=== PATIENT | male | born 1990 | race Caucasian/White ===

== ENCOUNTER 2018-01-25 22:13 | Emergency (ER) | payer BC ==
--- OUTSIDE RECORDS SUMMARY | 2018-01-25 22:17 | XMS REPORT | Continuity of Care Document ---
:1990 Author Organization Interface Problems Problem Status Onset Classification Date Comments Source Date Reported Acute headache 10/26/19 10/28/2017 [facility] 18 Nausea and 10/26/19 10/28/2017 [facility] vomiting 18 POSTOPERATIVE Active 10/19/19 [facility] SPINAL HEADACHE 18 [place] BACK PAIN, Active 10/19/19 [facility] NAUSEA 18 [place] BACK PAIN AND Active 08/26/19 [facility] LEG PAIN 18 [place] Discharge 04/05/20 04/08/2016 [place] Scrotal pain Discharge 04/05/20 04/08/2016 [place] Diagnosis: [place] Abdominal pain RIGHT LOWER Active 04/05/20 [place] QUADRANT PAIN [place] Generalized Resolved Problem 10/28/2017 anxiety disorder [facility] [place] Major depressive Resolved Problem 10/28/2017 disorder [facility] [place] Obesity Active Problem 10/28/2017 [facility] PTSD (<span Resolved Problem 10/28/2017 ID="[id number] [facility] ">Confirmed</spa [place] n>) OTHER REACTION [facility] [place] LUMBAR PUNC Medications Medication Details Route Status Patient Ordering Order Source Instructions Provider Date Acetaminophen 300 1 cap, PO, Q4H, Active MG / butalbital 50 PRN PRN 2018 [place] MG / Caffeine 40 Headache, Do MG Oral Capsule not exceed 6 [Fioricet] capsules in 24 hours, X 10 day, # 24 cap, 0 Refill(s) Promethazine 25 mg=1 supp, Active Hydrochloride 25 VA, Q6H, PRN 2018 [place] MG Rectal Nausea & Suppository Vomiting, # 12 [Phenergan] supp, 0 Refill(s) Ondansetron 4 MG 4 mg=1 tab, PO, Active Disintegrating BID, PRN Nausea 2018 [place] Tablet [Zofran] and Vomiting, Dissolve tab under tongue, # 10 tab, 0 Refill(s) Ketorolac 30 mg, 1 mL, Inactive Route: IVP, 2017 [place] Drug form: INJ, ONCE, Dosing Weight 102.273, kg, Priority: STAT, Start date: 10/25/17 18:51:00 CDT, Stop date: 10/25/17 18:51:00 CDTNotes: (Same as:Toradol) IV bolus must be given >15 seconds. Give IM administration slowly and deeply into the muscle. Not for use > 4 days MEDICATION WASTE Product Size: 30 mg Product Wasted: ___ mg Valproic Acid 100 1,000 mg, 10 Inactive MG/ML Injectable mL, Route: 2018 [place] Solution IVPB, ONCE, Dosing Weight 102.273, kg, Start date: 10/25/17 18:10:00 CDT, Stop date: 10/25/17 18:10:00 CDTNotes: Dilute in at least 50ml D5W or NS. Infusion rate=20 mg/min (Same As: Depacon) Benadryl 25 mg, 0.5 mL, Inactive Route: IVP, 2017 [place] Drug form: INJ, ONCE, Dosing Weight 102.273, kg, Priority: STAT, Start date: 10/25/17 18:02:00 CDT, Stop date: 10/25/17 18:02:00 CDTNotes: (Same as: Benadryl) Reglan 10 mg, 2 mL, Inactive Route: IVP, 2017 [place] Drug form: SOLN, ONCE, Dosing Weight 102.273, kg, Priority: STAT, Start date: 10/25/17 18:01:00 CDT, Stop date: 10/25/17 18:01:00 CDTNotes: (Same as: Reglan) Fentanyl 50 microgram, 1 Inactive mL, Route: IVP, 2017 [place] Drug form: INJ, ONCE, Dosing Weight 102.273, kg, Priority: STAT, Start date: 10/25/17 18:01:00 CDT, Stop date: 10/25/17 18:01:00 CDTNotes: (Same as: Sublimaze) Preservative free. Compazine 10 mg, 2 mL, Inactive Route: IV, Drug 2017 [place] form: INJ, ONCE, Dosing Weight 102.273, kg, Start date: 10/25/17 18:01:00 CDT, Stop date: 10/25/17 18:01:00 CDTNotes: (Same as: Compazine) Acetaminophen 325 1 tab, PO, Q6H, Active MH MG / Hydrocodone PRN Pain Score 2018 [place] Bitartrate 5 MG 6-10, 0 Oral Tablet [[place] Refill(s) 5/325] Acetaminophen 325 1 tab, PO, Q6H, Active MH MG / butalbital 50 PRN Headache 2018 [place] MG / Caffeine 40 1-5, X 7 day, # MG Oral Tablet 28 tab, 0 [Esgic] Refill(s), Pharmacy: [facility]/pharmacy #[id number] {21 See Active (Methylprednisolon Instructions, 2018 [place] e 4 MG Oral Tablet PO, Take by [Medrol]) } Pack mouth as [Medrol Dosepak] directed on label., # 1 Pack, 0 Refill(s), Pharmacy: [facility]/pharmacy #[id number] HYDROcodone 10 mg 10 mg=1 cap, Inactive MH oral capsule, PO, Q12H, 0 2018 [place] extended release Refill(s) methocarbamol 500 1,000 mg=2 tab, Inactive MH mg oral tablet PO, QID, # 56 2018 [place] tab, 0 Refill(s) Acetaminophen 300 1 - 2 tab, PO, Inactive MH MG / Codeine Q4H, PRN Pain, 2018 [place] Phosphate 30 MG # 20 tab, 0 Oral Tablet Refill(s) [Tylenol with Codeine #3] MethylPREDNISolone See Inactive MH Dose Pack 4 mg Instructions, 2018 [place] oral tablet PO, Daily, Use as directed on label., # 1 Pack, 0 Refill(s) Caffeine 200 MG 200 mg, Route: Inactive MH Oral Tablet PO, Drug form: 2018 [place] TAB, Daily, Dosing Weight 104.545, kg, Start date: 10/21/17 9:00:00 CDT, Duration: 30 day, Stop date: 11/19/17 9:00:00 CDT Valproic Acid 100 250 mg, 2.5 mL, Inactive MH MG/ML Injectable Route: IV, Q8H, 2018 [place] Solution Dosing Weight 104.545, kg, Start date: 10/21/17 0:00:00 CDT, Stop date: 10/22/17 16:00:00 CDTNotes: Dilute in at least 50ml D5W or NS. Infusion rate=20 mg/min (Same As: Depacon) Magnesium Sulfate 2 gm, 50 mL, Inactive Route: IV, Drug 2018 [place] form: INJ, ONCE, Dosing Weight 104.545, kg, Start date: 10/20/17 17:00:00 CDT, Stop date: 10/20/17 17:00:00 CDTNotes: WASTE: F/P - Sink; E - Municipal Trash Bin naproxen sodium 500 mg, 1 tab, Inactive Route: PO, Drug 2018 [place] form: TAB, ONCE, Dosing Weight 104.545, kg, Start date: 10/20/17 16:56:00 CDT, Stop date: 10/20/17 16:56:00 CDTNotes: (Same as: Naprosyn) Take with food. Dilaudid 0.5 mg, 0.5 mL, No Longer Route: IV, Drug Active 2018 [place] form: INJ, Q6H, Dosing Weight 104.545, kg, PRN Pain Score 6-10, Start date: 10/20/17 15:46:00 CDT, Duration: 30 day, Stop date: 11/19/17 15:45:00 CDT, Pain Score 9-10Notes: Same as: Dilaudid Acetaminophen 325 1 tab, Route: No Longer MG / Hydrocodone PO, Drug Form: Active 2018 [place] Bitartrate 5 MG TAB, Dosing Oral Tablet [[place] Weight 104.545, 5/325] kg, Q6H, PRN Pain Score 6-10, Start date: 10/20/17 15:34:00 CDT, Duration: 30 day, Stop date: 11/19/17 15:33:00 CDTNotes: (Same as: [place] 325/5) Do not exceed 4gm/day of acetaminophen. methylPREDNISolone 250 mg, 4 mL, Inactive SODium SUCCinate + Route: IV, Drug 2018 [place] Sodium Chloride form: INJ, Q8H, 0.9% IV 96 mL Dosing Weight 104.545, kg, Start date: 10/19/17 21:00:00 CDT, Stop date: 11/18/17 16:00:00 CDTNotes: (Same as:Solu-MEDROL, A-Methapred) methylPREDNISolone 250 mg, 4 mL, No Longer MH + Sodium Chloride Route: IV, Drug Active 2018 [place] 0.9% IV 100 mL form: INJ, Q8H, Start date: 10/19/17 21:00:00 CDT, Duration: 30 day, Stop date: 11/18/17 16:00:00 CDTNotes: (Same as:Solu-MEDROL, A-Methapred) methylPREDNISolone 250 mg, 4 mL, Inactive SODium SUCCinate + Route: IV, Drug 2018 [place] Sodium Chloride form: INJ, Q8H, 0.9% IV 96 mL Dosing Weight 104.545, kg, Start date: 10/19/17 19:00:00 CDT, Stop date: 11/18/17 16:00:00 CDTNotes: (Same as:Solu-MEDROL, A-Methapred) methylPREDNISolone 250 mg, 4 mL, Inactive SODium SUCCinate + Route: IV, Drug 2018 [place] Sodium Chloride form: INJ, Q8H, 0.9% IV 100 mL Dosing Weight 104.545, kg, Start date: 10/19/17 16:00:00 CDT, Stop date: 10/20/17 10:00:00 CDTNotes: (Same as:Solu-MEDROL, A-Methapred) Valproic Acid 100 250 mg, 2.5 mL, Active MG/ML Injectable Route: IVPB, 2018 [place] Solution Q8H, Dosing Weight 104.545, kg, Start date: 10/19/17 16:00:00 CDT, Stop date: 10/20/17 10:00:00 CDTNotes: Dilute in at least 50ml D5W or NS. Infusion rate=20 mg/min (Same As: Depacon) Phenergan + Sodium 25 mg, 1 mL, No Longer 05/17/ MH Chloride 0.9% IV Route: IVPB, Active 2018 [place] 50 mL Q4H, PRN Nausea & Vomiting, Start date: 10/19/17 15:06:00 CDT, Duration: 30 day, Stop date: 11/18/17 15:05:00 CDTNotes: Do not give IV push. (Same as: Phenergan) Zofran 4 mg, 2 mL, No Longer Route: IVP, Active 2018 [place] Drug form: INJ, Q8H, Dosing Weight 104.545, kg, PRN Nausea, Start date: 10/19/17 14:59:00 CDT, Duration: 30 day, Stop date: 11/18/17 14:58:00 CDTNotes: (Same as: Zofran) MEDICATION WASTE Product Size: 4 mg Product Wasted: ___ mg Zofran 4 mg, 2 mL, Inactive Route: IV, Drug 2017 [place] form: INJ, ONCE, Dosing Weight 104.545, kg, Priority: STAT, Start date: 10/19/17 14:50:00 CDT, Stop date: 10/19/17 14:50:00 CDTNotes: (Same as: Zofran) MEDICATION WASTE Product Size: 4 mg Product Wasted: ___ mg Magnesium Sulfate 2 gm, 50 mL, Inactive Route: IV, Drug 2017 [place] form: INJ, ONCE, Dosing Weight 104.545, kg, Start date: 10/19/17 14:49:00 CDT, Stop date: 10/19/17 14:49:00 CDTNotes: WASTE: F/P - Sink; E - [employer] Trash Bin Acetaminophen 325 1 tab, Route: No Longer MG / butalbital 50 PO, Drug Form: Active 2018 [place] MG / Caffeine 40 TAB, Dosing MG Oral Tablet Weight 104.545, [Esgic] kg, Q4H, PRN Headache 1-5, Start date: 10/18/17 23:57:00 CDT, Duration: 30 day, Stop date: 11/17/17 23:56:00 CDTNotes: (acetaminophen- butalbital-caff eine 325-50-40mg) Do not exceed 4 gm/day of acetaminophen. (Same as: Esgic, Fioricet) Morphine 4 mg, 1 mL, No Longer Route: IV, Drug Active 2017 [place] form: SOLN, Q4H, Dosing Weight 104.545, kg, PRN Pain Score 4-6, Start date: 10/18/17 22:54:00 CDT, Stop date: 11/17/17 22:53:00 CDTNotes: (Same as:MORPhine Sulfate) Dilaudid 1 mg, 1 mL, No Longer Route: IV, Drug Active 2017 [place] form: INJ, Q4H, Dosing Weight 104.545, kg, PRN Pain Score 7-10, Start date: 10/18/17 21:17:00 CDT, Stop date: 11/17/17 21:16:00 CDTNotes: Same as: Dilaudid Phenergan 12.5 mg, 0.5 No Longer mL, Route: Active 2018 [place] IVPB, Q4H, Dosing Weight 104.545, kg, PRN Nausea & Vomiting, Start date: 10/18/17 21:17:00 CDT, Duration: 30 day, Stop date: 11/17/17 21:16:00 CDTNotes: Do not give IV push. (Same as: Phenergan) Saline Flush 0.9% 10 ml, Route: No Longer IVP, Drug Form: Active 2017 [place] INJ, Dosing Weight 104.545, kg, PRN, PRN Line Flush, Start date: 10/18/17 21:15:00 CDT, Duration: 30 day, Stop date: 11/17/17 21:14:00 CDTNotes: (Same as: BD Posiflush) Sodium Chloride 1,000 mL, Rate: No Longer 0.9% IV 1,000 mL 125 ml/hr, Active 2018 [place] Infuse over: 8 hr, Route: IV, Dosing Weight 104.545 kg, Total Volume: 1,000, Start date: 10/18/17 21:15:00 CDT, Duration: 30 day, Stop date: 11/17/17 21:14:00 CDT, 2.31, m2 Acetaminophen 650 mg, 2 tab, No Longer Route: PO, Drug Active 2017 [place] form: TAB, Q4H, Dosing Weight 104.545, kg, PRN Pain 1-3/Temp > 100.4 F, Start date: 10/18/17 21:15:00 CDT, Duration: 30 day, Stop date: 11/17/17 21:14:00 CDTNotes: Do not exceed 4 gm/day. (Same as: Tylenol) Phenergan 12.5 mg, 0.5 Inactive mL, Route: 2018 [place] IVPB, ONCE, Dosing Weight 104.545, kg, Priority: STAT, Start date: 10/18/17 16:36:00 CDT, Stop date: 10/18/17 16:36:00 CDTNotes: Do not give IV push. (Same as: Phenergan) Dilaudid 0.5 mg, 0.5 mL, Inactive Route: IVP, 2017 [place] Drug form: INJ, ONCE, Dosing Weight 104.545, kg, Priority: STAT, Start date: 10/18/17 16:36:00 CDT, Stop date: 10/18/17 16:36:00 CDTNotes: Same as: Dilaudid normal saline 0.9% 1,000 mL, Rate: Inactive IV 1000 mL 1,000 ml/hr, 2017 [place] Infuse over: 1 hr, Route: IV, Dosing Weight 104.545 kg, Total Volume: 1,000, Priority: STAT, Start date: 10/18/17 15:16:00 CDT, Duration: 1 doses or times, Stop date: 10/18/17 16:15:00 CDT, 2.31, m2 Zofran ODT 4 mg, 1 tab, Inactive Route: PO, Drug 2017 [place] form: TABDIS, ONCE, Dosing Weight 104.545, kg, Priority: STAT, Start date: 10/18/17 14:09:00 CDT, Stop date: 10/18/17 14:09:00 CDTNotes: (Same as: Zofran ODT) Phenergan 12.5 mg, Route: Inactive IVPB, ONCE, 2017 [place] Dosing Weight 104.545, kg, Priority: STAT, Start date: 10/18/17 14:09:00 CDT, Stop date: 10/18/17 14:09:00 CDT Dilaudid 0.5 mg, 0.5 mL, Inactive Route: IVP, 2017 [place] Drug form: INJ, ONCE, Dosing Weight 104.545, kg, Priority: STAT, Start date: 10/18/17 12:02:00 CDT, Stop date: 10/18/17 12:02:00 CDTNotes: Same as: Dilaudid Morphine 4 mg, 1 mL, Inactive Route: IVP, 2017 [place] Drug form: SOLN, ONCE, Dosing Weight 104.545, kg, Priority: STAT, Start date: 10/18/17 11:59:00 CDT, Stop date: 10/18/17 11:59:00 CDTNotes: (Same as:MORPhine Sulfate) Morphine 4 mg, 1 mL, Inactive Route: IVP, 2017 [place] Drug form: SOLN, ONCE, Dosing Weight 104.545, kg, Priority: STAT, Start date: 10/18/17 10:12:00 CDT, Stop date: 10/18/17 10:12:00 CDTNotes: (Same as:MORPhine Sulfate) Robaxin 1,000 mg, 10 Inactive mL, Route: IV, 2017 [place] Drug form: INJ, ONCE, Dosing Weight 104.545, kg, Start date: 10/18/17 10:12:00 CDT, Stop date: 10/18/17 10:12:00 CDTNotes: (Same as:Robaxin) normal saline 0.9% 1,000 mL, Rate: Inactive IV 1,000 mL 1,000 ml/hr, 2017 [place] Infuse over: 1 hr, Route: IV, Dosing Weight 104.545 kg, Total Volume: 1,000, Priority: STAT, Start date: 10/18/17 8:54:00 CDT, Duration: 1 doses or times, Stop date: 10/18/17 9:53:00 CDT, 2.31, m2 Morphine 6 mg, 1.5 mL, Inactive Route: IVP, 2017 [place] Drug form: SOLN, ONCE, Dosing Weight 104.545, kg, Priority: STAT, Start date: 10/18/17 8:54:00 CDT, Stop date: 10/18/17 8:54:00 CDTNotes: (Same as:MORPhine Sulfate) Reglan 10 mg, 2 mL, Inactive Route: IVP, 2017 [place] Drug form: SOLN, ONCE, Dosing Weight 104.545, kg, Priority: STAT, Start date: 10/18/17 8:54:00 CDT, Stop date: 10/18/17 8:54:00 CDTNotes: (Same as: Reglan) tramadol 50 mg=1 tab, Active [place] hydrochloride 50 PO, Q4H, PRN [place] MG Oral Tablet Pain, X 5 day, # 30 tab, 0 Refill(s) Morphine 4 mg, Route: Inactive [place] IVP, ONCE, 2015 [facility] Dosing Weight 115.007, kg, Priority: STAT, Start date: 04/05/16 14:57:00 CDT, Stop date: 04/05/16 14:57:00 CDT Tramadol PO, 0 Refill(s) Active [place] Klonopin PO, TID, 0 Active [place] Refill(s) [place] Trazodone PO, 0 Refill(s) Active [place] Paxil PO, Daily, 0 Active [place] Refill(s) [place] Zofran 4 mg, Route: Inactive [place] IVP, Drug form: [place] INJ, ONCE, Dosing Weight 115.007, kg, Priority: STAT, Start date: 04/05/16 12:34:00 CDT, Stop date: 04/05/16 12:34:00 CDT Dilaudid 1 mg, Route: Inactive [place] IVP, ONCE, 2015 [facility] Dosing Weight 115.007, kg, Priority: STAT, Start date: 04/05/16 12:34:00 CDT, Stop date: 04/05/16 12:34:00 CDT Ondansetron 4 mg, Route: Inactive [place] IVP, ONCE, 2015 [facility] Dosing Weight 115.007, kg, Priority: STAT, Start date: 04/05/16 11:16:00 CDT, Stop date: 04/05/16 11:16:00 CDT Morphine 4 mg, Route: Inactive [place] IVP, ONCE, 2015 [facility] Dosing Weight 115.007, kg, Priority: STAT, Start date: 04/05/16 11:16:00 CDT, Stop date: 04/05/16 11:16:00 CDT Sodium Chloride 1,000 mL, 2,000 Inactive [place] 0.154 MEQ/ML ml/hr, Infuse 2015 [facility] Injectable Over: 30 Solution minutes, Route: IV, ONCE, Priority: STAT, Dosing Weight 115.007 kg, Start date: 04/05/16 11:16:00 CDT, Duration: 1 doses or times, Stop date: 04/05/16 11:16:00 CDT Saline Flush 0.9% 10 mL, Route: Inactive [place] IVP, Drug Form: [place] INJ, Dosing Weight 115.007, kg, PRN, PRN Line Flush, Start date: 04/05/16 11:16:00 CDT, Duration: 30 day, Stop date: 05/05/16 10:15:00 CSTNotes: (Same as: BD Posiflush) Allergies, Adverse Reactions, Alerts Substance Category Reaction Severity Reaction Status Date Comments Source type Reported NKDA Assertion Drug Active allergy [place] Immunizations Immunization Date Given Site Status Last Updated Comments Source Results Order Name Results Value Reference Date Interpretation Comments Source Range URINE AND UA Color STRAW 10/25 STOOL [place] URINE AND UA <=1.0 0.1 - 1.0 10/25 STOOL Urobilinogen mg/dL /2017 [place] URINE AND UA Sq Epi None Seen 10/25 STOOL [place] URINE AND UA Turbidity Clear Clear 10/25 STOOL /2017 [place] (10/25/17 5:10 PM) URINE AND UA WBC null 0 - 5 10/25 [place] URINE AND UA Mucus Few /LPF None Seen 10/25 [place] /LPF /2017 [place] URINE AND UA Glucose Negative Negative 10/25 [place] mg/dL mg/dL [place] URINE AND UA Spec Grav 1.008 <=1.030 10/25 [place] URINE AND UA pH 7.0 5.0 - 8.0 10/25 [place] URINE AND UA Protein Negative Negative 10/25 [place] mg/dL mg/dL [place] URINE AND UA Ketones Negative Negative 10/25 [place] mg/dL mg/dL [place] URINE AND UA Blood Negative Negative 10/25 [place] (10/25/17 5:10 PM) URINE AND UA Bili Negative Negative 10/25 [place] *NA* (10/25/17 5:10 PM) URINE AND UA Nitrite Negative Negative 10/25 [place] (10/25/17 5:10 PM) URINE AND UA Leuk Est Negative Negative 10/25 [place] (10/25/17 5:10 PM) CHEM PANEL A/G Ratio 1.2 0.7 - 1.6 10/25 [place] CHEM PANEL Globulin 3.4 g/dL 2.7 - 4.2 10/25 [place] CHEM PANEL B/C Ratio 14 6 - 25 10/25 [place] CHEM PANEL AGAP 10.7 meq/L 10.0 - 10/25 20.0 [place] CHEM PANEL eGFR 127 10/25 Result Comment: The eGFR is calculated using the CKD-EPI formula. In most young, healthy individuals the eGFR will be >90 mL/ min/1.73m2. The eGFR declines with age. An eGFR of 60-89 may be normal in mL/min/1.7 /2017 some populations, particularly the elderly, for whom the CKD-EPI formula has not been extensively validated. Use of the eGFR is not recommended in the following populations: [place] 3m2 Individuals with unstable creatinine concentrations, including patients and those with serious co-morbid conditions. Patients with extremes in muscle mass or diet. The data above are obtained from the National Kidney Disease Education Program (NKDEP) which additionally recommends that when the eGFR is used in patients with extremes of body mass index for purposes of drug dosing, the eGFR should be multiplied by the estimated BMI. CHEM PANEL Albumin Lvl 4.0 g/dL 3.5 - 5.0 10/25 [place] CHEM PANEL Total 7.4 g/dL 6.4 - 8.4 10/25 MH [place] CHEM PANEL Bili Total 0.3 mg/dL 0.2 - 1.3 10/25 [place] CHEM PANEL Alk Phos 56 unit/L 39 - 136 10/25 [place] CHEM PANEL AST 22 unit/L 0 - 37 10/25 [place] CHEM PANEL ALT 95 unit/L 0 - 65 10/25 [place] CHEM PANEL Glucose Lvl 81 mg/dL 70 - 99 10/25 [place] CHEM PANEL Potassium 4.7 meq/L 3.5 - 5.1 10/25 MH Lvl /2017 [place] CHEM PANEL Sodium Lvl 140 meq/L 135 - 145 10/25 [place] CHEM PANEL Creatinine 0.71 mg/dL 0.50 - 10/25 MH Lvl 1.40 [place] CHEM PANEL BUN 10 mg/dL 7 - 22 10/25 [place] CHEM PANEL Calcium Lvl 8.9 mg/dL 8.5 - 10.5 10/25 [place] CHEM PANEL CO2 29 meq/L 24 - 32 10/25 [place] CHEM PANEL Chloride Lvl 105 meq/L 95 - 109 10/25 [place] HEMATOLOGY PTT 21.9 s 22.9 - 10/25 MH 35.8 [place] HEMATOLOGY INR 0.94 0.85 - 10/25 MH 1.17 [place] HEMATOLOGY PT 12.6 s 12.0 - 10/25 MH 14.7 [place] HEMATOLOGY MPV 7.3 fL 7.4 - 10.4 10/25 [place] HEMATOLOGY RBC 5.03 M/CMM 4.70 - 10/25 MH 6.10 [place] HEMATOLOGY WBC 12.8 K/CMM 3.7 - 10.4 10/25 [place] HEMATOLOGY MCV 91.6 fL 80.0 - 10/25 MH 94.0 [place] HEMATOLOGY Hct 46.1 % 42.0 - 10/25 MH 54.0 [place] HEMATOLOGY Hgb 15.9 g/dL 14.0 - 10/25 MH 18.0 [place] HEMATOLOGY MCH 31.5 pg 27.0 - 10/25 MH 31.0 [place] HEMATOLOGY Platelet 258 K/CMM 133 - 450 10/25 [place] HEMATOLOGY MCHC 34.4 g/dL 32.0 - 10/25 MH 36.0 [place] HEMATOLOGY RDW 12.5 % 11.5 - 10/25 MH 14.5 [place] HEMATOLOGY Lymphocytes 4.3 K/CMM 1.0 - 5.5 10/25 MH # [place] HEMATOLOGY Monocytes # 1.0 K/CMM 0.0 - 0.8 10/25 [place] HEMATOLOGY Eosinophils 0.1 K/CMM 0.0 - 0.5 10/25 MH # [place] HEMATOLOGY Basophils # 0.1 K/CMM 0.0 - 0.2 10/25 [place] HEMATOLOGY Segs 56.7 % 45.0 - 10/25 MH 75.0 [facility] Monocytes 8.1 % 2.0 - 12.0 10/25 [facility] Lymphocytes 33.8 % 20.0 - 10/25 MH 40.0 [place] HEMATOLOGY Eosinophils 0.9 % 0.0 - 4.0 10/25 [facility] Segs-Bands # 7.3 K/CMM 1.5 - 8.1 10/25 [facility] Basophils 0.5 % 0.0 - 1.0 10/25 [place] Brain wo Brain wo Clinical Indication: - EM. 10/25 - [facility] contrast CT contrast CT - [place] Comparison: None. Read by: Annie Robert MD Dictated Date/time: 10/25/17 18:25 Electronically Signed by: Annie Robert MD 10/25/17 18:34 FINAL REPORT TECHNIQUE: CT images were obtained from the foramen magnum to the vertex without the use of intravenous contrast on a multidetector CT. CT imaging was performed with exposure control parameters to reduc e radiation dose. Coronal and sagittal reconstructions were obtained. CT radiation dose DLP: 1010.31 mGy-cm FINDINGS: BRAIN PARENCHYMA: The brain parenchyma is normal with normal bustamante and white interfaces. The periventricular white matter appears unremarkable. No focal mass lesions on this noncontrast head CT. No mass effect, midline shift or edema. There are no intra-axial or extra-axial fluid collections, intraventricular or intraparenchymal hemorrhage. No low attenuation demarcating areas on this non-contrast CT to suggest subacute stroke. VENTRICLES: The lateral ventricles, third and fourth ventricles appear unremarkable. The basilar cisterns are normal. ORBITS, MASTOIDS AND PARANASAL SINUSES: The visualized orbits are unremarkable. The visualized paranasal sinuses are unremarkable. The mastoid air cells are clear. SKULL: There are no osseous abnormalities. If there is further concern for intracranial pathology or acute stroke, MRI of the brain may be performed for complete assessment. IMPRESSION: No acute abnormality in the brain. SL: [facility] CHEM PANEL eGFR 129 10/20 Result Comment: The eGFR is calculated using the CKD-EPI formula. In most young, healthy individuals the eGFR will be >90 mL/ min/1.73m2. The eGFR declines with age. An eGFR of 60-89 may be normal in MH mL/min/1. some populations, particularly the elderly, for whom the CKD-EPI formula has not been extensively validated. Use of the eGFR is not recommended in the following populations: [place] [address] Individuals with unstable creatinine concentrations, including patients and those with serious co-morbid conditions. Patients with extremes in muscle mass or diet. The data above are obtained from the National Kidney Disease Education Program (NKDEP) which additionally recommends that when the eGFR is used in patients with extremes of body mass index for purposes of drug dosing, the eGFR should be multiplied by the estimated BMI. CHEM PANEL Calcium Lvl 9.1 mg/dL 8.5 - 10.5 10/20 [place] CHEM PANEL Creatinine 0.68 mg/dL 0.50 - 10/20 MH Lvl 1.40 [place] CHEM PANEL Sodium Lvl 139 meq/L 135 - 145 10/20 [place] CHEM PANEL Glucose Lvl 131 mg/dL 70 - 99 10/20 [place] CHEM PANEL BUN 12 mg/dL 7 - 22 10/20 [place] CHEM PANEL CO2 25 meq/L 24 - 32 10/20 [place] CHEM PANEL Chloride Lvl 103 meq/L 95 - 109 10/20 [place] CHEM PANEL Potassium 4.0 meq/L 3.5 - 5.1 10/20 [facility] Lvl /2017 [place] CHEM PANEL AGAP 15.0 meq/L 10.0 - 10/20 MH 20.0 [place] HEMATOLOGY MCV 89.9 fL 80.0 - 10/20 MH 94.0 /2017 [place] HEMATOLOGY RDW 12.6 % 11.5 - 10/20 MH 14.5 [place] HEMATOLOGY WBC 10.6 K/CMM 3.7 - 10.4 10/20 /2017 [place] HEMATOLOGY MPV 7.0 fL 7.4 - 10.4 10/20 /2017 [facility] MCH 31.6 pg 27.0 - 10/20 MH 31.0 [place] HEMATOLOGY MCHC 35.2 g/dL 32.0 - 10/20 MH 36.0 [place] HEMATOLOGY Platelet 256 K/CMM 133 - 450 10/20 [place] HEMATOLOGY Hgb 15.6 g/dL 14.0 - 10/20 MH 18.0 [place] HEMATOLOGY Hct 44.5 % 42.0 - 10/20 MH 54.0 [place] HEMATOLOGY RBC 4.95 M/CMM 4.70 - 10/20 MH 6.10 [place] HEMATOLOGY Monocytes 0.8 % 2.0 - 12.0 10/20 MH /2017 [place] HEMATOLOGY Basophils 0.1 % 0.0 - 1.0 10/20 /2017 [place] HEMATOLOGY Monocytes # 0.1 K/CMM 0.0 - 0.8 10/20 [place] HEMATOLOGY Lymphocytes 0.9 K/CMM 1.0 - 5.5 10/20 MH # /2017 [place] HEMATOLOGY Segs 90.4 % 45.0 - 10/20 MH 75.0 [place] HEMATOLOGY Segs-Bands # 9.6 K/CMM 1.5 - 8.1 10/20 [place] HEMATOLOGY Lymphocytes 8.7 % 20.0 - 10/20 MH 40.0 [place] HEMATOLOGY PTT 23.5 s 22.9 - 10/19 MH 35.8 [place] HEMATOLOGY INR 0.95 0.85 - 10/19 MH 1. [place] HEMATOLOGY PT 12.7 s 12.0 - 10/19 MH 14.7 [place] Brain CTA Brain CTA Patient Name: OTONIEL SANFORD 10/19 - - Arsenio : 1990. Age: 27 years. Gender: Male. MR: [id number]. Location: [facility]. Provider: MD Penny Elizalde MD. Perla Reyes MD. Read by: Julien Gandara MD Dictated Date/time: 10/19/17 23:04 Electronically Signed by: Julien Gandara MD 10/19/17 23:22 FINAL REPORT EXAM: Brain CTA. PROVIDED CLINICAL HISTORY: Back pain. Headache. Clinical suspicion for spasm. TECHNIQUE: Standard protocol for CT Angiogram of the intracranial arteries with iodinated intravenous contrast. Multiplanar MIP and 3-D reformats. Interpretation is based on 902 images. CONTRAST: Omnipaque 350, 100 mL. EXPOSURE: Total exam DLP is 1445.42 mGy-cm. COMPARISON: CT Brain performed 10/18/2017. FINDINGS: CTA BRAIN: GENERAL ASSESSMENT: -- The [place] of Patel, petrous and cavernous segments of the internal carotid arteries, the middle (M1, M2), anterior (A1, A2), and posterior (P1, P2 ) cerebral arteries, the basilar artery, and the imaged distal vertebral arteries are evaluated. Significant stenoses and aneurysms are detailed below. -- No significant calcific atherosclerosis. No definite evidence of malformation, dissection, or other significant abnormality of the imaged arteries. STENOSIS / OCCLUSION: No significant flow-limiting stenosis. No abrupt termination of flow suggestive of occlusion. ANEURYSM: No definite intracranial aneurysm. Limited exam sensitivity and specificity for aneurysms smaller than 0.3 cm. VARIANT ANATOMY: No unusual or anomalous arterial anatomy. DURAL SINUSES: No significant filling defect suggestive of thrombosis or occlusion of the dural sinuses or larger cerebral veins. Limited assessment on this arterial phase exam. CT HEAD: BRAIN: No abnormal brain parenchymal, meningeal, or ependymal enhancement. No acute transcortical infarct. No clinically significant white matter disease. No brain parenchymal contusion or edema. No intracranial hemorrhage or other fluid collection. No intracranial mass. Age-consistent brain parenchymal volume. VENTRICLES / CISTERNS / SHIFT: No hydrocephalus. No significant effacement of the basal cisterns or foramen magnum. No significant midline shift. BONES / SCALP: No acute depressed fracture of the calvarium or skull base. No aggressive bone lesions. No significant extracranial soft tissue abnormality. IMAGED SINUSES / MASTOIDS: No significant paranasal sinus fluid. No significant sinus mucosal thickening. No significant fluid in the imaged mastoid air cells. IMPRESSION (CT Head and CTA Brain): No signs of vasospasm or other significant abnormality of the intracranial arteries. No significant intracranial abnormality. SL: [place] CHEM PANEL Lipase Lvl 83 unit/L 73 - 393 10/18 [place] CHEM PANEL B/C Ratio 17 6 - 25 10/18 [place] CHEM PANEL Globulin 3.6 g/dL 2.7 - 4.2 10/18 [place] CHEM PANEL A/G Ratio 1.1 0.7 - 1.6 10/18 [place] CHEM PANEL AGAP 14.8 meq/L 10.0 - 10/18 [facility] 20.0 /2017 [place] CHEM PANEL eGFR 122 10/18 Result Comment: The eGFR is calculated using the CKD-EPI formula. In most young, healthy individuals the eGFR will be >90 mL/ min/1.73m2. The eGFR declines with age. An eGFR of 60-89 may be normal in MH mL/min/1. some populations, particularly the elderly, for whom the CKD-EPI formula has not been extensively validated. Use of the eGFR is not recommended in the following populations: [address] Individuals with unstable creatinine concentrations, including patients and those with serious co-morbid conditions. Patients with extremes in muscle mass or diet. The data above are obtained from the National Kidney Disease Education Program (NKDEP) which additionally recommends that when the eGFR is used in patients with extremes of body mass index for purposes of drug dosing, the eGFR should be multiplied by the estimated BMI. CHEM PANEL Bili Total 0.2 mg/dL 0.2 - 1.3 10/18 [place] CHEM PANEL Alk Phos 59 unit/L 39 - 136 10/18 [place] CHEM PANEL CO2 25 meq/L 24 - 32 10/18 [place] CHEM PANEL Chloride Lvl 106 meq/L 95 - 109 10/18 [place] CHEM PANEL Glucose Lvl 104 mg/dL 70 - 99 10/18 [place] CHEM PANEL BUN 13 mg/dL 7 - 22 10/18 [place] CHEM PANEL Creatinine 0.78 mg/dL 0.50 - 10/18 [facility] Lvl 1.40 [place] CHEM PANEL Calcium Lvl 9.5 mg/dL 8.5 - 10.5 05 [place] CHEM PANEL Total 7.6 g/dL 6.4 - 8.4 10/18 [facility] [place] CHEM PANEL Albumin Lvl 4.0 g/dL 3.5 - 5.0 10/18 [facility] [place] CHEM PANEL ALT 55 unit/L 0 - 65 10/18 [place] CHEM PANEL AST 9 unit/L 0 - 37 10/18 [place] CHEM PANEL Sodium Lvl 142 meq/L 135 - 145 10/18 [facility] [place] CHEM PANEL Potassium 3.8 meq/L 3.5 - 5.1 10/18 [facility] Lvl /2017 [place] HEMATOLOGY MCV 92.3 fL 80.0 - 10/18 [facility] 94.0 [place] HEMATOLOGY RDW 12.7 % 11.5 - 10/18 [facility] 14.5 [place] HEMATOLOGY MCHC 33.5 g/dL 32.0 - 10/18 [facility] 36.0 [place] HEMATOLOGY Hgb 15.5 g/dL 14.0 - 10/18 [facility] 18.0 [place] HEMATOLOGY Hct 46.2 % 42.0 - 10/18 [facility] 54.0 [place] HEMATOLOGY WBC 14.3 K/CMM 3.7 - 10.4 10/18 [place] HEMATOLOGY RBC 5.01 M/CMM 4.70 - 10/18 [facility] 6.10 [place] HEMATOLOGY Platelet 278 K/CMM 133 - 450 10/18 [place] HEMATOLOGY MPV 7.1 fL 7.4 - 10.4 10/18 [place] HEMATOLOGY MCH 30.9 pg 27.0 - 10/18 [facility] 31.0 [place] HEMATOLOGY Basophils 0.2 % 0.0 - 1.0 10/18 [facility] [place] HEMATOLOGY Segs-Bands # 10.7 K/CMM 1.5 - 8.1 10/18 [place] HEMATOLOGY Lymphocytes 2.3 K/CMM 1.0 - 5.5 10/18 [facility] # /2017 [place] HEMATOLOGY Eosinophils 0.1 % 0.0 - 4.0 10/18 [place] HEMATOLOGY Segs 75.1 % 45.0 - 10/18 [facility] 75.0 [place] HEMATOLOGY Lymphocytes 16.4 % 20.0 - 05 [facility] 40.0 /2018 [place] HEMATOLOGY Monocytes 8.2 % 2.0 - 12.0 10/18 [place] HEMATOLOGY Monocytes # 1.2 K/CMM 0.0 - 0.8 10/18 [place] Sp[facility] Spine lumbar Study: Spine lumbar w/wo contrast MRI 10/18/2017 10:45 AM CDT 10/18 [facility] [place] contrast contrast MRI Ordering Physician: Chantel Olson MRI Read by: Krystin Antoine MD Dictated Date/time: 10/18/17 13:06 Clinical Indication: Pain with neurological manifestation - pain post myelogram; 27-year-old status post lumbar myelogram yesterday. Severe low back pain and numbness of the left leg since the procedure. Electronically Signed by: Krystin Antoine MD 10/18/17 13:57 FINAL REPORT Comparison: None TECHNIQUE: Multiplanar, multiecho MRI of the lumbar spine is performed on a 1.5 Suzanne magnet before and after intravenous administration of 20 cc dotarem. GFR 122. FINDINGS: ALIGNMENT AND GENERAL ASSESSMENT: Lumbar lordosis is mildly straightened. Signal within the marrow of the regional osseous structures is normal. Postoperative change noted at L5-S1. Discs maintain lety l height and hydration from L4-5 to T11-12. The conus terminates appropriately at the L1 level. There is no evidence to suggest abnormal signal, hemorrhage or pathologic enhancement within the distal co rd, however there appears to be congestion within the thecal sac at and just below the level of the conus; nerve roots at this level are somewhat indistinct and not well seen. On the axial T1-weighted i mages, there is a thin crescent of T1 hyperintense signal located within the anterior thecal sac extending from L1 to L3-4; corresponding enhancement is noted on the axial T1 enhanced fat suppressed laurita ges. These findings are not, however, well seen on the sagittal sequences. The appearance does, however, suggest the presence of a small amount of intradural extramedullary hemorrhage. Lumbar puncture m ay be helpful. Correlation with previous post myelogram CT images is recommended. Thin, linear epidural enhancement within the dorsal canal is present, extending from the T11-12 level to L2-3, probably related to recent lumbar puncture. No gross paraspinal abnormalities are seen. DISC SPACES: T11-12 through L4-L5: Unremarkable. No posterior disc bulges or protrusions are seen. There is no appreciable spondylosis or facet arthrosis, nor is there evidence for central, foraminal or lateral recess stenosis. L5-S1: Solidly incorporated anterior interbody fusion with instrumentation noted. Screws are present anteriorly within the L5 and S1 vertebral bodies. Right laminectomy and partial facetectomy are prese nt. There are bilateral posterior lateral osseous fusions with instrumentation. Hardware consists of bilateral L5 and S1 pedicular screws which are affixed with vertical stabilization bars and a horizon andrew cross-link device. There is mild right lateralizing spondylosis, with small postoperative annular disc bulge. There is likely contact without displacement of the S1 root in the lateral recess. No ce ntral, foraminal or lateral recess stenosis is seen. There is mild epidural fibrosis about the right S1 root in the lateral recess, without mass effect. IMPRESSION: Subtle signal alteration is present in the posterior paraspinal soft tissues at the L2 level, suggesting that this is the location of the recent lumbar puncture. On the axial T1 and T1 enhanced fat supp ressed images, there appears to increased T1 signal with enhancement located in the anterior thecal sac from L1 to L3-for. The appearance could reflect the presence of a small amount of intradural extra medullary hemorrhage. Signal abnormality and enhancement is not, however, well visualized on the corresponding sagittal sequences. Should there be clinical concern regarding intrathecal hemorrhage, lum bar puncture could be obtained. Comparison with post myelogram CT scan performed yesterday is recommended. Thin, smooth epidural enhancement within the lower thoracic and upper lumbar canal is present. This is thought most likely to reflect recent lumbar puncture, with or without a small amount of epidural l eakage of contrast. Again, correlation with the previous lumbar myelogram and post myelogram CT scan is suggested. At L5-S1, anterior and posterior interbody fusion with instrumentation noted. There is solid incorporation across the anterior intervertebral disc space. Right laminectomy and partial facetectomy are se en. There is mild right lateralizing spondylosis with small postoperative annular disc bulge. No nerve root impingement identified. There is epidural fibrosis about the right S1 root in the lateral rece ss, without mass effect. These findings are not appreciably changed as compared to previous CT scans of the abdomen and pelvis performed in 2016. SL: [id number] Brain wo Brain wo EXAM: CT BRAIN WITHOUT CONTRAST 10/18 [facility] contrast CT contrast CT [facility] DATE: 10/18/2017 9:05 AM CDT Read by: Ashutosh Falcon MD Dictated Date/time: 10/18/17 10:29 Electronically Signed by: Ashutosh Falcon MD 10/18/17 10:32 FINAL REPORT INDICATION: Headache Post Lumbar Puncture Reaction - headache post myelogram ADDITIONAL INFORMATION AND CT DLP: 906.99 mGy-cm. COMPARISON: None. TECHNIQUE: Routine axial CT images of the brain were obtained. IV contrast: None. FINDINGS: Non-contrast images of the head demonstrate no edema, hemorrhage, mass lesion or other acute intracranial abnormality. Bustamante-white matter distinction is preserved. The ventricles are normal. The basal cisterns and sulci are normal in size. The paranasal sinuses, orbits and mastoids are unremarkable. IMPRESSION: 1. No definite acute infarct or intracranial hemorrhage detected. If there is further concern for intracranial pathology or acute stroke, MRI of the brain may be performed for complete assessment. SL: [id number] URINE AND UA <=1.0 0.1 - 1.0 04/05 [place] Urobilinogen mg/dL [facility] URINE AND UA pH 7.0 5.0 - 8.0 04/05 [place] URINE AND UA Protein Negative Negative 04/05 [place] mg/dL mg/dL [facility] URINE AND UA Blood Small Negative 04/05 [place] *ABN* (04/05/16 12:57 PM) URINE AND UA Bili Negative Negative 04/05 [place] [facility] *NA* (04/05/16 12:57 PM) URINE AND UA Glucose Negative Negative 04/05 [place] mg/dL mg/dL [place] URINE AND UA Ketones Negative Negative 04/05 [place] mg/dL mg/dL [place] URINE AND UA Sq Epi None Seen 04/05 [place] URINE AND UA RBC 1 /HPF 0 - 2 04/05 [place] URINE AND UA Leuk Est Negative Negative 04/05 [place] (04/05/16 12:57 PM) URINE AND UA Nitrite Negative Negative 04/05 [place] (04/05/16 12:57 PM) URINE AND UA WBC 1 /HPF 0 - 5 04/05 [place] [facility] URINE AND UA Color Light Yellow Yellow 04/05 [place] *NA* (04/05/16 12:57 PM) URINE AND UA Turbidity Clear Clear 04/05 [place] (04/05/16 12:57 PM) URINE AND UA Spec Grav 1.004 <=1.030 04/05 [place] CHEM PANEL Globulin 4.2 g/dL 2.7 - 4.2 04/05 [place] CHEM PANEL B/C Ratio 23 6 - 25 04/05 [place] CHEM PANEL AGAP 14.3 meq/L 10.0 - 04/05 [place] 20.0 [place] CHEM PANEL A/G Ratio 1.0 0.7 - 1.6 04/05 [place] CHEM PANEL ALT 83 unit/L 0 - 65 04/05 [place] CHEM PANEL Albumin Lvl 4.2 g/dL 3.5 - 5.0 04/05 [place] CHEM PANEL Total 8.4 g/dL 6.4 - 8.4 04/05 [place] CHEM PANEL AST 27 unit/L 0 - 37 04/05 [place] CHEM PANEL Alk Phos 83 unit/L 39 - 136 04/05 [place] CHEM PANEL Bili Total 0.4 mg/dL 0.2 - 1.3 04/05 [place] CHEM PANEL eGFR 121 04/05 Result Comment: The eGFR is calculated using the CKD-EPI formula. In most young, healthy individuals the eGFR will be >90 mL/ min/1.73m2. The eGFR declines with age. An eGFR of 60-89 may be normal in mL/min/1.7 some populations, particularly the elderly, for whom the CKD-EPI formula has not been extensively validated. Use of the eGFR is not recommended in the following populations: [place] 3[place]2 Individuals with unstable creatinine concentrations, including patients and those with serious co-morbid conditions. Patients with extremes in muscle mass or diet. The data above are obtained from the National Kidney Disease Education Program (NKDEP) which additionally recommends that when the eGFR is used in patients with extremes of body mass index for purposes of drug dosing, the eGFR should be multiplied by the estimated BMI. CHEM PANEL BUN 19 mg/dL 7 - 22 04/05 [place] CHEM PANEL Creatinine 0.82 mg/dL 0.50 - 04/05 [place] Lvl 1.40 /2015 [place] CHEM PANEL Chloride Lvl 99 meq/L 95 - 109 04/05 [place] CHEM PANEL Sodium Lvl 139 meq/L 135 - 145 04/05 [place] CHEM PANEL Potassium 4.3 meq/L 3.5 - 5.1 04/05 [place] L[place] CHEM PANEL CO2 30 meq/L 24 - 32 04/05 [place] CHEM PANEL Calcium Lvl 9.5 mg/dL 8.5 - 10.5 04/05 [place] CHEM PANEL Glucose Lvl 89 mg/dL 70 - 99 04/05 [place] HEMATOLOGY Basophils # 0.0 K/CMM 0.0 - 0.2 04/05 [place] HEMATOLOGY Eosinophils 0.1 K/CMM 0.0 - 0.5 04/05 [place] HEMATOLOGY Lymphocytes 1.7 K/CMM 1.0 - 5.5 04/05 [place] HEMATOLOGY Monocytes # 0.7 K/CMM 0.0 - 0.8 04/05 [place] HEMATOLOGY Segs 63.2 % 45.0 - 04/05 [place] 75.0 [place] HEMATOLOGY Lymphocytes 24.8 % 20.0 - 04/05 [place] 40.0 [place] HEMATOLOGY Eosinophils 0.9 % 0.0 - 4.0 04/05 [place] HEMATOLOGY Monocytes 10.9 % 2.0 - 12.0 04/05 [place] HEMATOLOGY Basophils 0.2 % 0.0 - 1.0 04/05 [place] HEMATOLOGY Segs-Bands # 4.3 K/CMM 1.5 - 8.1 04/05 [place] HEMATOLOGY Platelet 264 K/CMM 133 - 450 04/05 [place] HEMATOLOGY MCHC 33.0 g/dL 32.0 - 04/05 [place] 36.0 [place] HEMATOLOGY RDW 13.5 % 11.5 - 04/05 [place] 14.5 [place] HEMATOLOGY MCV 89.8 fL 80.0 - 04/05 [place] 94.0 [place] HEMATOLOGY MCH 29.6 pg 27.0 - 04/05 [place] 31.0 [facility] HEMATOLOGY Hgb 14.2 g/dL 14.0 - 04/05 [place] 18.0 [facility] HEMATOLOGY Hct 43.0 % 42.0 - 04/05 [place] 54.0 [facility] HEMATOLOGY WBC 6.9 K/CMM 3.7 - 10.4 04/05 [facility] HEMATOLOGY RBC 4.79 M/CMM 4.70 - 04/05 [place] 6.10 [facility] HEMATOLOGY MPV 7.4 fL 7.4 - 10.4 04/05 [facility] Scrotal/Sarah Scrotal/Test SCROTAL ULTRASOUND AND ULTRASOUND SCROTAL DOPPLER, 04/05/201604/05 - [facility] ticle w icle w [facility] Doppler US Doppler US HISTORY: Scrotal pain. Read by: Marty Griggs MD Dictated Date/time: 04/05/16 16:17 Electronically Signed by: Marty Griggs MD 04/05/16 16:18 FINAL REPORT TECHNIQUE: The testicles and scrotum were studies in the longitudinal and transverse planes. Ultrasound scrotal Doppler was also performed. FINDINGS: The right testicle measures 3.5 x 2.1 x 2.7 cm. The left testicle measures 3.7 x 1.9 x 3.0 cm. The testicular echo architecture is normal. Normal color doppler flow to both testicles seen.. No evidence of testicular mass. The right epididymis has a normal appearance. The left epididymis has a normal appearance. No evidence of hydrocele or varicocele. IMPRESSION: Normal scrotal ultrasound and ultrasound scrotal Doppler. ED ED EXAM: CT ABDOMEN AND PELVIS WITH AND WITHOUT CONTRAST 04/05 - [facility] Abdomen/Pel Abdomen/Pelv /2015 - [facility] vis IV is IV DATE:- 04/05/2016 11:16 AM CDT . contrast contrast only CT only CT Read by: Lenny Anders MD Dictated Date/time: 04/05/16 14:08 CLINICAL INDICATION: RLQ pain. Electronically Signed by: Lenny Anders MD 04/05/16 14:11 FINAL REPORT ADDITIONAL DATA: None COMPARISON: None Dose: DLP 3277 mGy-cm TECHNIQUE: CT of the abdomen and pelvis with intravenous contrast. Multiplanar reformats. IV CONTRAST: 100 cc Omnipaque 300 GI CONTRAST: none FINDINGS: Lung bases: Dependent atelectasis. Liver: Low density without focal lesion. Spleen: Within normal limits. Adrenal glands: Within normal limits. Gallbladder/biliary: Within normal limits. Kidneys: Within normal limits. Normal excretion on delayed images. Pancreas: Within normal limits GI tract: Within normal limits. The appendix is normal. Lymph nodes: Within normal limits. Urinary bladder: Within normal limits. Reproductive structures: Within normal limits. Regional skeleton: Lumbar postoperative changes without evidence of hardware failure. IMPRESSION: 1. No acute findings in the abdomen or pelvis. The appendix is normal. 2. Hepatic steatosis Vital Signs Vital Sign Value Date Comments Source Systolic (mm Hg) 120 10/25/2017 [facility] Diastolic (mm Hg) 71 10/25/2017 [facility] Heart Rate 84 10/25/2017 [facility] Respitory Rate 20 10/25/2017 [facility] Temperature Oral (F) 98.0 F 10/25/2017 [facility] Weight 102.273 10/25/2017 [facility] Height 180.34 cm 10/25/2017 [facility] BMI Calculated 31.45 10/25/2017 [facility] Respitory Rate 18 10/25/2017 [facility] Heart Rate 98 10/25/2017 [facility] Temperature Oral (F) 98.1 F 10/25/2017 [facility] Systolic (mm Hg) 122 10/25/2017 [facility] Diastolic (mm Hg) 86 10/25/2017 [facility] Heart Rate 89 10/21/2017 [facility] Respitory Rate 18 10/21/2017 [facility] Temperature Oral (F) 97.9 F 10/21/2017 [facility] Systolic (mm Hg) 114 10/21/2017 [facility] Diastolic (mm Hg) 63 10/21/2017 [facility] Heart Rate 85 10/21/2017 [facility] Respitory Rate 18 10/21/2017 [facility] Temperature Oral (F) 98.1 F 10/21/2017 [facility] Systolic (mm Hg) 131 10/21/2017 [facility] Diastolic (mm Hg) 71 10/21/2017 [facility] Heart Rate 84 10/21/2017 [facility] Temperature Oral (F) 97.7 F 10/21/2017 [facility] Respitory Rate 18 10/21/2017 [facility] Systolic (mm Hg) 113 10/21/2017 [facility] Diastolic (mm Hg) 67 10/21/2017 [facility] Weight 104.545 10/18/2017 [facility] Height 180.34 cm 10/18/2017 [facility] BMI Calculated 32.15 10/18/2017 [place] Temperature Oral (F) 97.4 F 04/05/2016 [place] Respitory Rate 18 04/05/2016 [place] Systolic (mm Hg) 105 04/05/2016 [place] Diastolic (mm Hg) 71 04/05/2016 [place] Heart Rate 87 04/05/2016 [place] Temperature Oral (F) 98.2 F 04/05/2016 [place] Systolic (mm Hg) 112 04/05/2016 [place] Diastolic (mm Hg) 69 04/05/2016 [place] Respitory Rate 16 04/05/2016 [place] Weight 115.007 04/05/2016 [place] Respitory Rate 20 04/05/2016 [place] Heart Rate 92 04/05/2016 [place] Systolic (mm Hg) 124 04/05/2016 [place] Diastolic (mm Hg) 80 04/05/2016 [place] Temperature Oral (F) 98.1 F 04/05/2016 [place] Encounters Location Location Encounter Encounter Reason Attending ADM DC Status Source Details Type Number For Provider Date Date [facility] [id number] [place] 04/05 04/05 [place] Arsenio Gonsales /2015 [facility] [place] Out[facility] [id number] ESTUARDO 04/08 [facility] [place] Out[place] [id number] ABIGAIL 05/09 [facility] TEYKL [place] Out[place] [id number] ESTUARDO 06/08 [facility] [place] Outpatient [id number] ESTUARDO 07/08 [facility] [id number] Francis 10/18 10/21 Arsenio Tonio /2017 [facility] [id number] Patsy 10/25 10/26 Arsenio Alcanter /2017 [facility] Outpatient [id number] ASHUTOSH 01/23 [facility] [place] Procedures Procedure Code Date Perfomer Comments Source Spinal fusion [id number] [facility] Spinal fusion [id number] [place]
--- OUTSIDE RECORDS SUMMARY | 2018-01-25 22:18 | XMS REPORT ---
:1990 [facility] Address [address] [address] [address] Care Team Providers Name Role Phone DR YANIV BANUELOS Unavailable Unavailable Problems This patient has no known problems. Allergies, Adverse Reactions, Alerts This patient has no known allergies or adverse reactions. Medications This patient has no known medications. Encounters Start End Encounter Admission Attending Care Care Encounter Date/Time Date/Time Type Type Clinicians Facility Department ID 2016-03-14 2016-04-04 Outpatient ZURDO SPENCER [facility] [place] [id number] 10:00:00 23:59:00 YANIV
[2018-01-25 23:28] LABS: Urine Blood NEGATIVE (NEG); Urine Glucose NEGATIVE (NEG); Urine Protein NEGATIVE (NEG); Urine pH 6.5 (5.0-7.0)
[2018-01-25] MEDS ORDERED: NA CHLORIDE 0.9% 1,000 ML ONE (23:40)
[2018-01-25] MEDS ORDERED: FAMOTIDINE 20 MG/2 ML VIAL IV ONE (23:40)
[2018-01-25] MEDS ORDERED: MORPHINE 4 MG/ML SYR ONE (23:40)
[2018-01-25] MEDS ORDERED: ONDANSETRON 4 MG/2 ML VIAL ONE (23:40)
[2018-01-25] MEDS ORDERED: NA CHLORIDE 0.9% 100 ML IV ONE (23:41)
[2018-01-25 23:48] LABS: Absolute Lymphocytes (CBC) 3.5 K/uL (0.7-4.9); Absolute Monocytes 1.3 K/uL (0.1-1.3); Absolute Neutrophil 5.7 K/uL (1.8-8.0); Basophils % 0.3 % (0-1.3); Eosinophils % 0.4 % (0-4.4); Hematocrit 42.7 % (39.6-49.0); Lymphocytes % 33.4 % (15.3-44.8); MCH 31.2 pg (27.0-35.0); MCV 91.3 fL (80-100); MPV 7.4 fL (7.6-11.3); Protime INR 1.01; RBC Red Blood Cell Count 4.67 M/uL (4.33-5.43)
[2018-01-25 23:58] LABS: ALT/SGPT 59 U/L (12-78); AST/SGOT 22 U/L (15-37); Albumin 4.3 g/dL (3.4-5.0); Alkaline Phosphatase 52 U/L (45-117); BUN Blood Urea Nitrogen 14 mg/dL (7-18); Bicarbonate 26 mmol/L (21-32); Bilirubin Direct 0.1 mg/dL (0-0.2); Bilirubin Total 0.4 mg/dL (0.2-1.0); Glucose Level 86 mg/dL (74-106); Lipase 117 U/L (73-393); Potassium 4.1 mmol/L (3.5-5.1); Protein, Total 7.9 g/dL (6.4-8.2); Sodium Level 137 mmol/L (136-145)
[2018-01-26] LABS: Urine Bacteria NONE SEEN /HPF (NONE SEEN); Urine Culture Reflex Order NOT NEEDED; Urine RBC NONE SEEN /HPF (NONE SEEN)
[2018-01-26] MEDS ORDERED: NA CHLORIDE 0.9% 100 ML IV ONE (00:07)
[2018-01-26] MEDS ORDERED: PROMETHAZINE 25 MG/ML VIAL ONE (00:07)
--- NOTE | 2018-01-26 01:46 | ER ---
Nurse's Notes [facility] Name: Jefferson Meier Age: 27 yrs Sex: Male : 1990 Arrival Date: 01/25/2018 Time: 22:16 Bed 27 Private MD: Diagnosis: Vomiting;Lower abdominal pain, unspecified Presentation: 01/25 22:20 Presenting complaint: Patient states: he has RLQ and chest pain for a week but worsen mg2 today. vomtted twice with blood clots today. he also had diarrhea for a week now.. Transition of care: patient was not received from another setting of care. Onset of symptoms was January 2018. Risk Assessment: Do you want to hurt yourself or someone else? Patient reports no desire to harm self or others. Initial Sepsis Screen: Does the patient meet any 2 criteria? No. Patient's initial sepsis screen is negative. Does the patient have a suspected source of infection? No. Patient's initial sepsis screen is negative. Care prior to arrival: None. 22:20 Method Of Arrival: Wheelchair mg2 22:20 Acuity: BERNICE 3 mg2 Historical: - Allergies: 22:53 No Known Allergies; mg2 - Home Meds: 22:53 gabapentin oral oral [Active]; mg2 01/26 01:16 Percocet 10-325 mg Oral tab 1 tab every 6 hours [Active]; gs - PMHx: 01/25 22:53 Anxiety; mg2 01/26 01:16 Chronic pain; gs - PSHx: 01/25 22:53 back surgeries; spinal fusion; mg2 - Immunization history:: Flu vaccine is not up to date. - Social history:: Smoking status: Patient/guardian denies using tobacco, Patient uses alcohol, occasionally. Patient/guardian denies using IV drugs. - Ebola Screening: : No symptoms or risks identified at this time. Screenin:54 Abuse screen: Denies threats or abuse. Denies injuries from another. Nutritional mg2 screening: No deficits noted. Tuberculosis screening: No symptoms or risk factors identified. Fall Risk Assessment: 22:54 General: Appears uncomfortable, Behavior is anxious. Pain: Complains of pain in right mg2 lower quadrant Pain does not radiate. Pain currently is 10 out of 10 on a pain scale. Quality of pain is described as aching, Pain began gradually, 1 week Is intermittent, Alleviated by medications. Neuro: Level of Consciousness is awake, alert, obeys commands, Oriented to person, place, time, situation. Cardiovascular: Capillary refill < 3 seconds Patient's skin is warm and dry. Respiratory: Airway is patent Respiratory effort is even, unlabored, Respiratory pattern is regular, symmetrical. GI: Abdomen is flat, non-distended, Reports lower abdominal pain. : Urine is clear. EENT: No signs and/or symptoms were reported regarding the EENT system. Derm: Skin is intact, Skin is pink, warm \T\ dry. normal. Musculoskeletal: No signs and/or symptoms reported regarding the musculoskeletal system. 01/26 00:28 Reassessment: Patient appears in no apparent distress at this time. Patient and/or mg2 family updated on plan of care and expected duration. Pain level reassessed. Patient is alert, oriented x 3, equal unlabored respirations, skin warm/dry/pink. patient sent to ct scan. 01:33 Reassessment: Patient appears in no apparent distress at this time. Patient and/or mg2 family updated on plan of care and expected duration. Pain level reassessed. Patient is alert, oriented x 3, equal unlabored respirations, skin warm/dry/pink. 01:55 Reassessment: Patient appears in no apparent distress at this time. Patient and/or mg2 family updated on plan of care and expected duration. Pain level reassessed. Patient is alert, oriented x 3, equal unlabored respirations, skin warm/dry/pink. Vital Signs: 01/25 22:21 BP 139 / 97; Pulse 99; Resp 20; Temp 98.2(O); Pulse Ox 100% on R/A; Weight 113.4 kg; mg2 Height 5 ft. 11 in. (180.34 cm); Pain 10/10; 23:21 BP 129 / 79; Pulse 90; Resp 18; Pulse Ox 100% on R/A; Pain 8/10; mg2 01/26 00:21 BP 136 / 79; Pulse 95; Resp 18; Pulse Ox 100% on R/A; Pain 6/10; mg2 01:56 BP 125 / 78; Pulse 90; Resp 17; Pulse Ox 100% on R/A; Pain 4/10; mg2 01/25 22:21 Body Mass Index 34.87 (113.40 kg, 180.34 cm) mg2 ED Course: 01/25 22:16 Patient arrived in ED. rg4 22:20 Garrett Barbour, RN is Primary Nurse. mg2 22:21 Triage completed. mg2 22:53 Arm band placed on right wrist. mg2 22:54 Inserted saline lock: 20 gauge in right antecubital area, using aseptic technique. mg2 Blood collected. Patient maintains SpO2 saturation greater than 95% on room air. 23:12 Filemon Jo MD is Attending Physician. gs 23:20 Pulse ox on. NIBP on. mg2 01/26 00:07 Radiology exam delayed due to Patient is being given pain meds at this time. Will check kw1 back in 10 minutes. 00:[address] via wheelchair. kw1 00:38 CT Abd/Pelvis - W/Contrast In Process Unspecified. EDMS 00:40 CT completed. Patient tolerated procedure well. Patient moved back from CT. kw1 01:34 Patient has correct armband on for positive identification. Placed in gown. Bed in low mg2 position. Side rails up X 1. 01:56 No provider procedures requiring assistance completed. IV discontinued, intact, mg2 bleeding controlled, No redness/swelling at site. Pressure dressing applied. Administered Medications: 01/25 23:46 Drug: morphine 4 mg Route: IVP; Infused Over: 1 hrs; Site: right antecubital; tl3 01/26 01:15 Follow up: Response: No adverse reaction; Pain is decreased mg2 01/25 23:46 Drug: Zofran 4 mg Route: IVP; Infused Over: 2 mins; Site: right antecubital; tl3 01/26 00:05 Follow up: Response: No adverse reaction; Nausea unchanged mg2 01/25 23:47 Drug: NS 0.9% 1000 ml Route: IV; Rate: 1 bolus; Site: right antecubital; Delivery: tl3 Primary tubing; 01/26 01:16 Follow up: Response: No adverse reaction; IV Status: Completed infusion mg2 01/25 23:47 Drug: Pepcid 20 mg Route: IVP; Infused Over: 2 mins; Site: right antecubital; tl3 01/26 01:15 Follow up: Response: No adverse reaction mg2 00:06 Drug: Phenergan 25 mg Route: IVP; Site: right antecubital; mg2 01:06 Follow up: Response: No adverse reaction; Marked relief of symptoms mg2 Outcome: 01:46 Discharge ordered by . codey 01:56 Discharged to home ambulatory, with family. mg2 01:56 Condition: stable 01:56 Discharge instructions given to patient, family, Instructed on discharge instructions, follow up and referral plans. medication usage, Demonstrated understanding of instructions, follow-up care, medications, Prescriptions given X 2. 01:57 Patient left the ED. mg2 Signatures: Dispatcher [employer] EDMS Meri Sarmiento rg4 Filemon Jo MD MD Cassandra Chiang 1 Svetlana Disla, RN RN tl3 Garrett Barbour, ZULEIKA RN mg2
--- NOTE | 2018-01-26 01:46 | EDPHYS ---
Physician Documentation [facility] Name: Jefferson Meier Age: 27 yrs Sex: Male : 1990 Arrival Date: 01/25/2018 Time: 22:16 Bed 27 Private MD: ED Physician Filemon Jo HPI: 01/26 01:10 This 27 yrs old Male presents to ER via Wheelchair with complaints of gs Abdominal Pain. 01:10 The patient presents with abdominal pain in the lower abdomen. Onset: The gs symptoms/episode began/occurred suddenly, just prior to arrival. Associated signs and symptoms: Pertinent positives: nausea and vomiting, had some bloody streaks after vomiting a couple of times. says has had diarrhea for a week. . The symptoms are described as crampy. Modifying factors: The symptoms are alleviated by nothing, the symptoms are aggravated by nothing. Severity of pain: At its worst the pain was severe in the emergency department the pain is unchanged. The patient has experienced similar episodes in the past, a few times. Historical: - Allergies: 01/25 22:53 No Known Allergies; mg2 - Home Meds: 22:53 gabapentin oral oral [Active]; mg2 01/26 01:16 Percocet 10-325 mg Oral tab 1 tab every 6 hours [Active]; gs - PMHx: 01/25 22:53 Anxiety; mg2 01/26 01:16 Chronic pain; gs - PSHx: 01/25 22:53 back surgeries; spinal fusion; mg2 - Immunization history:: Flu vaccine is not up to date. - Social history:: Smoking status: Patient/guardian denies using tobacco, Patient uses alcohol, occasionally. Patient/guardian denies using IV drugs. - Ebola Screening: : No symptoms or risks identified at this time. ROS: 01/26 01:10 All other systems are negative. gs Exam: 01:16 Head/Face: Normocephalic, atraumatic. Eyes: Pupils equal round and reactive to light, gs extra-ocular motions intact. Lids and lashes normal. Conjunctiva and sclera are non-icteric and not injected. Cornea within normal limits. Periorbital areas with no swelling, redness, or edema. ENT: Nares patent. No nasal discharge, no septal abnormalities noted. Tympanic membranes are normal and external auditory canals are clear. Oropharynx with no redness, swelling, or masses, exudates, or evidence of obstruction, uvula midline. Mucous membranes moist. Neck: Trachea midline, no thyromegaly or masses palpated, and no cervical lymphadenopathy. Supple, full range of motion without nuchal rigidity, or vertebral point tenderness. No Meningismus. Chest/axilla: Normal chest wall appearance and motion. Nontender with no deformity. No lesions are appreciated. Cardiovascular: Regular rate and rhythm with a normal S1 and S2. No gallops, murmurs, or rubs. Normal PMI, no JVD. No pulse deficits. Respiratory: Lungs have equal breath sounds bilaterally, clear to auscultation and percussion. No rales, rhonchi or wheezes noted. No increased work of breathing, no retractions or nasal flaring. Back: No spinal tenderness. No costovertebral tenderness. Full range of motion. Skin: Warm, dry with normal turgor. Normal color with no rashes, no lesions, and no evidence of cellulitis. MS/ Extremity: Pulses equal, no cyanosis. Neurovascular intact. Full, normal range of motion. Neuro: Awake and alert, GCS 15, oriented to person, place, time, and situation. Cranial nerves II-XII grossly intact. Motor strength 5/5 in all extremities. Sensory grossly intact. Cerebellar exam normal. Normal gait. 01:16 Constitutional: The patient appears alert, awake. 01:16 Abdomen/GI: Palpation: moderate abdominal tenderness, in the umbilical area, right lower quadrant and left lower quadrant. 01:16 ECG was reviewed by the Attending Physician. Vital Signs: 01/25 22:21 BP 139 / 97; Pulse 99; Resp 20; Temp 98.2(O); Pulse Ox 100% on R/A; Weight 113.4 kg; mg2 Height 5 ft. 11 in. (180.34 cm); Pain 10/10; 23:21 BP 129 / 79; Pulse 90; Resp 18; Pulse Ox 100% on R/A; Pain 8/10; mg2 01/26 00:21 BP 136 / 79; Pulse 95; Resp 18; Pulse Ox 100% on R/A; Pain 6/10; mg2 01:56 BP 125 / 78; Pulse 90; Resp 17; Pulse Ox 100% on R/A; Pain 4/10; mg2 01/25 22:21 Body Mass Index 34.87 (113.40 kg, 180.34 cm) mg2 MDM: 01/25 23:27 Patient medically screened. 01/26 01:16 Differential diagnosis: appendicitis, bowel obstruction, diverticulitis, non-specific gs abd pain, chronic pain syndrome. Data reviewed: vital signs, nurses notes. Response to treatment: the patient's symptoms have markedly improved after treatment, and as a result, I will discharge patient. ED course: discussed with patient normal labs, ct normal. discussed issues of chronic pain and possible relationship to current symptoms. pt says he has been very stressed out lately. i emphasized the need for multidisciplinary care between his doctors.. 01/25 22:33 Order name: Urine Dipstick--Ancillary (enter results); Complete Time: 00:02 [facility] 01/25 23:36 Order name: Basic Metabolic Panel; Complete Time: 00:02 EDTX 01/25 23:36 Order name: Liver (Hepatic) Function; Complete Time: 00:02 EDTX 01/25 23:36 Order name: Lipase; Complete Time: 00:02 EDTX 01/25 23:36 Order name: Troponin (Emerg Dept Use Only); Complete Time: 00:02 EDTX 01/25 23:36 Order name: CBC with Automated Diff; Complete Time: 00:02 EDTX 01/25 23:36 Order name: Protime (+INR); Complete Time: 00:02 EDTX 01/25 23:00 Order name: IV Saline Lock; Complete Time: 23:00 01/25 23:00 Order name: Labs collected and sent; Complete Time: 23:00 01/25 23:00 Order name: Urine Dipstick-Ancillary (obtain specimen); Complete Time: 23:00 01/25 23:01 Order name: EKG; Complete Time: 23:44 01/25 23:01 Order name: EKG - Nurse/Tech; Complete Time: 23:14 01/25 23:33 Order name: CT Abd/Pelvis - W/Contrast 01/25 23:36 Order name: Urine Microscopic Only; Complete Time: 00:02 EDMS EC:16 Rate is 103 beats/min. Rhythm is regular. QRS interval is prolonged. No Q waves. T gs waves are Normal. No ST changes noted. Clinical impression: Abnormal EKG without significant change. Interpreted by me. Administered Medications: 01/25 23:46 Drug: morphine 4 mg Route: IVP; Infused Over: 1 hrs; Site: right antecubital; tl3 01/26 01:15 Follow up: Response: No adverse reaction; Pain is decreased mg2 01/25 23:46 Drug: Zofran 4 mg Route: IVP; Infused Over: 2 mins; Site: right antecubital; tl3 01/26 00:05 Follow up: Response: No adverse reaction; Nausea unchanged mg2 01/25 23:47 Drug: NS 0.9% 1000 ml Route: IV; Rate: 1 bolus; Site: right antecubital; Delivery: tl3 Primary tubing; 01/26 01:16 Follow up: Response: No adverse reaction; IV Status: Completed infusion mg2 01/25 23:47 Drug: Pepcid 20 mg Route: IVP; Infused Over: 2 mins; Site: right antecubital; tl3 01/26 01:15 Follow up: Response: No adverse reaction mg2 00:06 Drug: Phenergan 25 mg Route: IVP; Site: right antecubital; mg2 01:06 Follow up: Response: No adverse reaction; Marked relief of symptoms mg2 Disposition: 01/26/18 01:46 Discharged to Home. Impression: Vomiting, Lower abdominal pain, unspecified. - Condition is Stable. - Discharge Instructions: Nausea and Vomiting, Adult. - Prescriptions for Phenergan 25 mg Rectal Suppository - insert 1 suppository by RECTAL route every 6 hours As needed; 12 suppository. Pepcid 20 mg Oral Tablet - take 1 tablet by ORAL route once daily; 20 tablet. - Medication Reconciliation Form, Thank You Letter, Antibiotic Education, Prescription Opioid Use form. - Follow up: Private Physician; When: 2 - 3 days; Reason: Re-evaluation by your physician. Signatures: Dispatcher [employer] EDMS Filemon Jo MD MD Svetlana Disla RN RN tl3 Garrett Barbour RN RN mg2 Corrections: (The following items were deleted from the chart) 01/25 23:55 23:44 UA MICROSCOPIC+U.LAB.BRZ ordered. EDMS EDMS 23:55 23:44 TROPONIN (EMERG DEPT USE ONLY)+C.LAB.BRZ ordered. EDMS EDMS 23:56 23:43 BASIC METABOLIC PANEL+C.LAB.BRZ ordered. EDMS EDMS 23:56 23:43 CBC+H.LAB.BRZ ordered. EDMS EDMS 23:56 23:44 HEPATIC FUNCTION+C.LAB.BRZ ordered. EDMS EDMS 23:56 23:44 LIPASE+C.LAB.BRZ ordered. EDMS EDMS 23:56 23:44 PROTIME (+INR)+COAG.LAB.BRZ ordered. EDMS EDMS 01/26 01:57 01:46 01/26/2018 01:46 Discharged to Home. Impression: Vomiting; Lower abdominal pain, mg2 unspecified. Condition is Stable. Forms are Medication Reconciliation Form, Thank You Letter, Antibiotic Education, Prescription Opioid Use. Follow up: Private Physician; When: 2 - 3 days; Reason: Re-evaluation by your physician. gs
[2018-01-26 02:09] VITALS: TEMP 98.2; O2SAT 100
[2018-01-26 02:12] VITALS: BP 125/78
--- NOTE | 2018-01-26 07:06 | EKG ---
Test Date: 2018-01-25 Test Time: 23:08:12 Technical Assistance Consultant: MG MEASUREMENT RESULTS: Intervals: Rate: 103 WY: 122 QRSD: 94 QT: 344 QTc: 450 [place]: P: 38 WY: 122 QRS: 7 T: 35 INTERPRETIVE STATEMENTS: Sinus tachycardia Incomplete right bundle branch block Borderline ECG Compared to ECG 08/18/2011 11:09:08 Incomplete right bundle-branch block now present Sinus rhythm no longer present Left ventricular hypertrophy no longer present Electronically Signed On 01-26-18 07:06:16 CDT by Lenny Matos
--- NOTE | 2018-01-26 08:24 | RAD REPORT ---
EXAM DESCRIPTION: CT - Abdomen Pelvis W Contrast - 01/26/2018 5:02 am CLINICAL HISTORY: Abdominal pain/right lower quadrant pain for 1 week with vomiting and diarrhea COMPARISON: 2014 TECHNIQUE: Computed axial tomography of the abdomen pelvis was obtained. 100 cc Isovue-300 was admin istered intravenously. Oral contrast was not requested which limits evaluation of bowel. A preliminary report was generated by [employer] and reviewed prior to this dictation All CT scans are performed using dose optimization technique as appropriate and may include automated exposure control or mA/KV adjustment according to patient size. FINDINGS: Fatty infiltration of the liver is present. Spleen, pancreas, adrenal and kidneys appear unremarkable. There is no evidence of diverticulitis. The appendix is normal. Postsurgical changes involve L5-S1 A tiny umbilical hernia is present. A ventral hernia within the pelvis midline has a neck of 5 centim eters containing fat. The bladder is mildly distended. IMPRESSION: Mild bladder distention Fatty infiltration liver
== END 2018-01-26 01:57 | disposition home or self-care (01) ==
LOC: ER 22:13
DX: R10.30 Lower abdominal pain, unspecified (principal); R11.2 Nausea with vomiting, unspecified; R07.9 Chest pain, unspecified; R19.7 Diarrhea, unspecified; G89.29 Other chronic pain
CPT/HCPCS: 36415; 74177; 80048; 80076; 81003; 81015; 83690; 84484; 85025; 85610; 93005; 96361; 96374; 96375; 99285; J2405; J2550; J7030; Q9967